=== PATIENT | male | born 1975 | race Caucasian/White ===

== ENCOUNTER 2016-07-11 10:05 | Emergency (ER) | payer OTHER ==
[2016-07-11 10:13] VITALS: RESP 16
--- NOTE | 2016-07-11 10:26 | EDPHY ---
[id number] Exam Limitations: No limitations - Personal History Current Tetanus/Diphtheria Vaccine: Unsure Current Tetanus Diphtheria and Acellular Pertussis (TDAP): Unsure - Medical/Surgical History Hx Asthma: No Hx Chronic Respiratory Disease: No Hx Diabetes: No Hx Cardiac Disease: No Hx Renal Disease: No Hx Cirrhosis: No Hx Alcoholism: No Hx HIV/AIDS: No Hx Splenectomy or Spleen Trauma: No Other PMH: healthy - Family History Significant Family History: No pertinent family hx - Social History Smoking Status: Never smoked Time Seen by Provider: 07/11/16 10:16 HPI/ROS: CHIEF COMPLAINT: cough, fever, sore throat HISTORY OF PRESENT ILLNESS: 41-year-old male presents complaining of a fever, cough and sore throat times 4 days. Patient states last weekend he had a fever and a cough that improved and then came back on Wednesday. Multiple sick contacts at home. He reports nasal congestion, postnasal drip, ear pressure, sore throat and cough. Subjective fever and chills. Decreased appetite. Patient reports no nausea, vomiting or diarrhea, no abdominal pain. REVIEW OF SYSTEMS: A comprehensive 10 point review of systems is otherwise negative aside from elements mentioned in the history of present illness. (Taylor Ramirez) - Physical Exam Exam: General: Alert, nontoxic. ENT: Tympanic membranes clear, external auditory canal, external ear and surrounding soft tissue including over the mastoid unremarkable. Nasopharynx is injected, there is no rhinorrhea. Oropharynx with erythema, no edema. There is exudate. Bilateral tonsillar hypertrophy. No asymmetry. The uvula is midline. No elevation of tongue. There is no hoarseness. No drooling, patient has good control of their oral secretions. No trismus. No stridor. Cardiac: Regular rate and rhythm. Respiratory: Lungs expiratory wheezes bilateral lower lobes. Neurological: no meningismus. Skin: No rashes. (Taylor Ramirez) Constitutional: Initial Vital Signs Temperature (C) 37.7 C 07/11/16 10:10 Heart Rate 90 07/11/16 10:10 Respiratory Rate 16 07/11/16 10:10 Blood Pressure 115/80 07/11/16 10:10 O2 Sat (%) 97 07/11/16 10:10 O2 Delivery Mode Room Air Allergies/Adverse Reactions: No Known Allergies Allergy (Unverified 07/11/16 10:10) Home Medications: Medication Instructions Recorded AZITHROMYCIN [Z-PACK] 250 mg PO DAILY #6 tab 07/11/16 Albuterol Sulfate [Proair 2 puffs IH Q4-6PRN PRN #1 inh 07/11/16 Respiclick] Fluticasone Nasal [Flonase Nasal 2 sprays NASAL DAILY #1 mdi 07/11/16 Brandon (RX)] Medical Decision Making ED Course/Re-evaluation: 41-year-old nontoxic-appearing male presents with URI symptoms x1 week, rapid strep and rapid flu are negative. Patient had a chest x-ray showing a bronchitis. He will be discharged with a prescription for a Z-Meek and Flonase. I have given him instructions on alternating Tylenol with ibuprofen, albuterol inhaler, saline nasal rinses. Patient is to return for any worsening symptoms, difficulty managing his secretions, difficulty breathing, any other questions or concerns. (Taylor Ramirez) Differential Diagnosis: Diagnosis considered but not limited to bronchitis, pneumonia, strep pharyngitis , viral syndrome, influenza (Taylor Ramirez) Other Provider: This patient was evaluated and managed by the nurse practitioner. I have reviewed the chart and agree with the findings and plan of care as documented. ( Estela Myers) - Data Points Laboratory Results: 07/11/16 07/11/16 07/11/16 Unknown 10:26 10:25 Influenza Typ A,B (DFA) NEGATIVE FOR FLU (NEGATIVE) Group A Strep Screen NEGATIVE (NEGATIVE) Group A Strep DNA POSITIVE H (NEGATIVE) Medications Given: Discontinued Medications Acetaminophen (Tylenol) 650 mg PO EDNOW ONE Stop: 07/11/16 11:12 Last Admin: 07/11/16 11:38 Dose: 650 mg Carbamide Peroxide (Debrox) 5 drop EACHEAR EDNOW ONE Stop: 07/11/16 11:33 Last Admin: 07/11/16 12:04 Dose: 5 drops Dexamethasone (Decadron) 10 mg PO EDNOW ONE Stop: 07/11/16 11:12 Last Admin: 07/11/16 11:38 Dose: 10 mg Departure - Departure Disposition: Home, Routine, Self-Care Clinical Impression: Acute bronchitis Instructions: Carbamide Peroxide (Into the ear), Acute Bronchitis (ED) Additional Instructions: Take over the counter Tylenol and ibuprofen as instructed. Rest, drink plenty of fluids. Take antibiotics as prescribed, use 2 sprays of albuterol inhaler every 4 hours as needed for cough, use 2 sprays of Flonase in each nostril daily for 7 days. Follow-up with your primary care doctor for symptoms that are not improving in the next 3-5 days. Use a saline nasal rinse, humidifier at night, hot steam showers. Return to the ED for difficulty breathing, chest pain, other concerns. Referrals: SUZANNE FALCON [Primary Care Provider] - As per Instructions Prescriptions: Fluticasone Nasal [Flonase Nasal Brandon (RX)] 2 sprays NASAL DAILY #1 mdi Albuterol Sulfate [Proair Respiclick] 2 puffs IH Q4-6PRN PRN #1 inh PRN Reason: Cough, Moderate AZITHROMYCIN [Z-PACK] 250 mg PO DAILY #6 tab
--- NOTE | 2016-07-11 10:54 | DX ---
PA and Lateral Chest History: Shortness breath, cough, sore throat, intermittent fever. Comparison: None available. Findings: There is mild peribronchial thickening without focal consolidation. There is no pneumothora x or pleural effusion. The heart and pulmonary vasculature are normal. The bones are normal. Impression: Mild peribronchial thickening suggesting airways disease/bronchitis.
[2016-07-11] MEDS ORDERED: ACETAMINOPHEN 325 MG TAB PO ONE (11:11)
[2016-07-11] MEDS ORDERED: DEXAMETHASONE 4 MG TAB PO ONE (11:11)
[2016-07-11] MEDS ORDERED: CARBAMIDE PEROXIDE 15 ML BOTTLE EACHEAR ONE (11:32)
[2016-07-11] MEDS ORDERED: DEXAMETHASONE 10 MG/ML VIAL ONE (11:34)
[2016-07-11 12:06] VITALS: BP 122/67; PULSE 83; TEMP 99.1; O2SAT 93
== END 2016-07-11 12:05 | disposition home or self-care (01) ==
DX: J20.9 Acute bronchitis, unspecified (principal)